=== PATIENT | male | born 1950 ===

== ENCOUNTER 2022-03-05 21:36 | Outpatient (REF) | payer MEDICARE, SELFPAY ==
[2022-03-05 22:01] LABS: Abs Immature Grans 0.04 10^3/uL (0.0-0.06); Absolute Basophil Count 0.04 10^3/uL (0.0-0.2); Absolute Eosinophil Count 0.19 10^3/uL (0.0-0.7); Absolute Monocyte Count 0.99 10^3/uL (0.1-0.8); Basophils % 0.3; Eosinophils % 1.6; HGB 13.9 g/dL (13.5-17.5); Immature Grans % 0.3; Lymphocytes % 19.5; MCH 29.4 pg (27.0-33.0); MCHC 33.1 % (32.0-36.0); MCV 89 fL (80-95); Monocytes % 8.3; Platelet Count 363 10^3/uL (130-400); RBC 4.73 10^6/uL (4.36-5.78); RDW 12.4 % (11.8-14.1); RDW-SD 40.3 fL; WBC 11.92 10^3/uL (4.4-10.8)
[2022-03-05 22:02] LABS: Absolute Lymphocyte Count 2.32 10^3/uL (1.2-3.4); Absolute Neutrophil Count 8.34 10^3/uL (1.2-6.7)
[2022-03-05 22:16] LABS: Hemoglobin A1C 5.8 % (<5.7)
== END 2022-03-05 21:37 | disposition home or self-care (01) ==
LOC: LBN 21:36
DX: I10 Essential (primary) hypertension (principal); D64.9 Anemia, unspecified; E78.00 Pure hypercholesterolemia, unspecified
CPT/HCPCS: 83036; 85025

== ENCOUNTER 2022-03-25 18:00 | Outpatient (REF) | payer MEDICARE, SELFPAY ==
[2022-03-25 22:21] LABS: Anion Gap 7.6 mmol/L (3-11); BUN 16 mg/dL (7-18); CO2 25.4 mmol/L (21.0-32.0); CREATININE 0.7 mg/dL (0.70-1.30); Chloride 103 mmol/L (98-107); Estimated GFR 98.51 (mL/min/1.73m2); Glucose 92 mg/dL (74-106); Potassium 4.1 mmol/L (3.5-5.1); Sodium 136 mmol/L (136-145); TSH (W/Ref FT4) 0.55 uIU/mL (0.36-3.74)
[2022-03-26 20:42] LABS: PSA, Screening 1.1 ng/mL (<=6.5)
[2022-03-29 10:01] LABS: Hepatitis C Ab w Rflx HCV PCR Negative (Negative)
== END 2022-03-25 18:01 | disposition home or self-care (01) ==
LOC: NCHCN 18:00
PROVIDERS: Visit Provider Family Medicine
DX: R63.4 Abnormal weight loss (principal); N40.0 Benign prostatic hyperplasia without lower urinary tract symptoms; Z12.5 Encounter for screening for malignant neoplasm of prostate; Z11.59 Encounter for screening for other viral diseases
CPT/HCPCS: 80048; 84153; 86803; 84443